=== PATIENT | male | born 1930 | race Caucasian/White ===

== ENCOUNTER 2017-06-05 14:22 | Emergency (ER) | payer MEDICARE ==
[2017-06-05] MEDS ORDERED: NS 0.9% 1000 ML* 1,000 ML IV ONE (15:35)
[2017-06-05 16:00] LABS: Hematocrit 46 % (42-52); Hemoglobin 15.5 g/dl (14.0-18.0); Mean Corpuscular HGB Conc 34 g/dl (31-36); Mean Corpuscular Hemoglobin 32 pg (27-31); Mean Corpuscular Volume 94 fL (80-94); Mean Platelet Volume 9 um3 (7.4-10.4); Red Blood Count 4.86 10^6/ul (4.0-5.4); Red Cell Distribution Width 14 % (10.5-15); White Blood Count 4.6 10^3/ul (3.5-10.8)
--- NOTE | 2017-06-05 16:10 | RAD ---
Indication: Pneumonia, CHF. Single frontal view of the chest performed at 1553 hours was reviewed. Comparison is made with previous exam dated February 06, 2017. No mediastinal shift is noted. Heart is of normal size and configuration. Lung syed appear clear. Bibasilar atelectasis is likely present. IMPRESSION: NO ACTIVE CARDIOPULMONARY DISEASE IS NOTED. MINIMAL DISCOID ATELECTASIS IN THE LUNG BASES BILATERALLY.
[2017-06-05 16:16] LABS: ALT 14 U/L (7-52); AST 20 U/L (13-39); Albumin 3.7 g/dL (3.2-5.2); Alkaline Phosphatase 59 U/L (34-104); Anion Gap 6 mmol/L (2-11); BUN/Creatinine Ratio 28.3 (8-20); Blood Urea Nitrogen 26 mg/dL (6-24); C Reactive Protein < 1.00 mg/L (< 5.00); CO2 Carbon Dioxide 26 mmol/L (22-32); Calcium 8.7 mg/dL (8.6-10.3); Chloride 105 mmol/L (101-111); Creatine Kinase 70 U/L (10-223); EGFR African American 100.6 (>60); EGFR Non-African American 78.2 (>60); Globulin 2.8 g/dL (2-4); Glucose 89 mg/dL (70-100); Magnesium 2.2 mg/dL (1.9-2.7); Potassium 3.8 mmol/L (3.5-5.0); Sodium 137 mmol/L (133-145); Total Protein 6.5 g/dL (6.4-8.9)
[2017-06-05 17:14] LABS: TSH (Thyroid Stimulating Horm) 0.95 mcIU/mL (0.34-5.60)
[2017-06-05 17:57] VITALS: BP 109/79
--- NOTE | 2017-06-05 18:22 | ED ---
Umang Gonsalez Angela, scribed for Yariel Chadwick MD on 06/05/17 at 1529 . Dizziness - HPI Summary HPI Summary: This pt is a 87 y/o male presenting to [facility] c/o dizziness today s/p internal monitor was placed yesterday. His long-term event monitor implant was recommended for arrhythmia assessment due to unexplained syncopal episode. Pt reports a room spinning feeling and head "fogginess." He was in the ED in January for vertigo and was given pills. He took these pills with no relief today. Pt denies passing out, headache, blurry vision, loss of vision, ringing in ears, chest pain, SOB. Pt's dizziness is not affected by sitting up. Pt has had stress test before. Pt denies PMHx of CVA, seizure disorder, diabetes. - History Of Current Complaint Chief Complaint: EDDizziness Stated Complaint: DIZZY/FOGGY FEELING Time Seen by Provider: 06/05/17 15:14 Hx Obtained From: Patient, Family/Clinical Biochemical Geneticist - Onset/Duration: Suddenly Timing: Hours Character: Head Spinning, Unable To Describe - head "fogginess" Associated Signs And Symptoms: Negative: Chest Pain, SOB, Visual Changes - Allergies/Home Medications Allergies/Adverse Reactions: Allergies Allergy/AdvReac Type Severity Reaction Status Date / Time Ciprofloxacin AdvReac C-DIFF Verified 05/07/17 08:46 Home Medications: Home Medications Aspirin EC Low Dose* [Ecotrin EC Low Dose 81 MG*] 81 mg PO DAILY 06/05/17 [ History Confirmed 06/05/17] Meclizine TAB* [Antivert 12.5 TAB*] 25 mg PO Q8HR PRN 06/05/17 [History Confirmed 06/05/17] PMH/Surg Hx/FS Hx/Imm Hx Endocrine/Hematology History: Denies: Hx Diabetes, Hx Thyroid Disease Cardiovascular History: Reports: Hx Hypertension - ON MEDICATION FOR, Other Cardiovascular Problems/Disorders - ARRYTHMIA- DR. CALABRESE Denies: Hx Angina, Hx Coronary Artery Disease, Hx Hypercholesterolemia, Hx Myocardial Infarction, Hx Pacemaker/ICD, Hx Valvular Heart Disease Respiratory History: Reports: Hx Seasonal Allergies, Hx Sleep Apnea - PRIOR TO WEIGHT LOSS PER PATIENT Denies: Hx Asthma, Hx Chronic Obstructive Pulmonary Disease (COPD) GI History: Denies: Hx Ulcer Musculoskeletal History: Reports: Hx Arthritis Sensory History: Reports: Hx Contacts or Glasses - READING GLASSES Denies: Hx Hearing Aid Opthamlomology History: Reports: Hx Contacts or Glasses - READING GLASSES - Surgical History Surgery Procedure, Year, and Place: HERNIA REPAIR Hx Anesthesia Reactions: No Infectious Disease History: No Infectious Disease History: Denies: Hx Hepatitis, Hx Human Immunodeficiency Virus (HIV), Traveled Outside the [place] in Last 30 Days - Family History Known Family History: Positive: Cardiac Disease, Diabetes Negative: Hypertension - Social History Alcohol Use: None Hx Substance Use: No Substance Use Type: Reports: None Hx Tobacco Use: No Smoking Status (MU): Never Smoked Tobacco Review of Systems Negative: Fever, Chills Eyes: Negative Negative: Blurred Vision ENT: Negative Negative: Palpitations, Chest Pain Negative: Shortness Of Breath Gastrointestinal: Negative Genitourinary: Negative Musculoskeletal: Negative Skin: Negative Neurological: Other - dizziness Positive: Headache - head "fogginess". Negative: Syncope Psychological: Normal All Other Systems Reviewed And Are Negative: Yes Physical Exam - Summary Physical Exam Summary: The patient is well-nourished in no acute distress. The skin is warm and dry and skin color reflects adequate perfusion. HEENT: The head is normocephalic and atraumatic. The pupils are equal and reactive. The conjunctivae are clear and without drainage. Nares are patent and without drainage. Mouth reveals moist mucous membranes and the throat is without erythema and exudate. The external ears are intact. The ear canals are patent and without drainage. The tympanic membranes are intact. Neck is supple with full range of motion and non-tender. There are no carotid bruits. Respiratory: Chest is non-tender. Lungs are clear to auscultation and breath sounds are symmetrical and equal. Cardiovascular: Heart is irregular. There is no murmur or rub auscultated. There is no peripheral edema and pulses are symmetrical and equal. Abdomen: The abdomen is soft and non-tender. There are normal bowel sounds heard in all four quadrants. Musculoskeletal: There is no back pain noted. Extremities are non-tender with full range of motion. There is good capillary refill. There is no peripheral edema or calf tenderness elicited. Neurological: Patient is alert and oriented to person, place and time. The patient has symmetrical motor strength in all four extremities. There is no motor weakness in upper extremities or lower extremities. Psychiatric: The patient has an appropriate affect and does not exhibit any anxiety or depression. Triage Information Reviewed: Yes Vital Signs On Initial Exam: Initial Vitals Temp Pulse Resp BP Pulse Ox 98.0 F 82 20 158/55 97 06/05/17 14:35 06/05/17 14:35 06/05/17 14:35 06/05/17 14:35 06/05/17 14:35 Vital Signs Reviewed: Yes - [place] Coma Scale Coma Scale Total: 15 Diagnostics - Vital Signs Vital Signs Temp Pulse Resp BP Pulse Ox 06/05/17 15:13 73 143/58 06/05/17 15:12 71 156/54 06/05/17 14:51 98 F 71 19 158/55 98 06/05/17 14:35 98.0 F 82 20 158/55 97 - Laboratory Lab Results: Lab Results 06/05/17 06/05/17 06/05/17 Range/Units 15:44 15:44 15:44 WBC 4.6 (3.5-10.8) 10^3/ul RBC 4.86 (4.0-5.4) 10^6/ul Hgb 15.5 (14.0-18.0) g/dl Hct 46 (42-52) % MCV 94 (80-94) fL MCH 32 H (27-31) pg MCHC 34 (31-36) g/dl RDW 14 (10.5-15) % Plt Count 151 (150-450) 10^3/ul MPV 9 (7.4-10.4) um3 Neut % (Auto) 49.0 (38-83) % Lymph % (Auto) 31.0 (25-47) % Hodgeman % (Auto) 18.0 H (1-9) % Eos % (Auto) 1.3 (0-6) % Baso % (Auto) 0.7 (0-2) % Absolute Neuts (auto) 2.2 (1.5-7.7) 10^3/ul Absolute Lymphs (auto) 1.4 (1.0-4.8) 10^3/ul Absolute Monos (auto) 0.8 (0-0.8) 10^3/ul Absolute Eos (auto) 0.1 (0-0.6) 10^3/ul Absolute Basos (auto) 0 (0-0.2) 10^3/ul Absolute Nucleated RBC 0.01 10^3/ul Nucleated RBC % 0.1 INR (Anticoag Therapy) (0.89-1.11) Sodium 137 (133-145) mmol/L Potassium 3.8 (3.5-5.0) mmol/L Chloride 105 (101-111) mmol/L Carbon Dioxide 26 (22-32) mmol/L Anion Gap 6 (2-11) mmol/L BUN 26 H (6-24) mg/dL Creatinine 0.92 (0.67-1.17) mg/dL Est GFR ( Amer) 100.6 (>60) Est GFR (Non-Af Amer) 78.2 (>60) BUN/Creatinine Ratio 28.3 H (8-20) Glucose 89 (70-100) mg/dL Lactic Acid (0.5-2.0) mmol/L Calcium 8.7 (8.6-10.3) mg/dL Magnesium 2.2 (1.9-2.7) mg/dL Total Bilirubin 0.60 (0.2-1.0) mg/dL AST 20 (13-39) U/L ALT 14 (7-52) U/L Alkaline Phosphatase 59 (34-104) U/L Total Creatine Kinase 70 (10-223) U/L Troponin I 0.00 (<0.04) ng/mL C-Reactive Protein < 1.00 (< 5.00) mg/L B-Natriuretic Peptide 62 ( - 100) pg/mL Total Protein 6.5 (6.4-8.9) g/dL Albumin 3.7 (3.2-5.2) g/dL Globulin 2.8 (2-4) g/dL Albumin/Globulin Ratio 1.3 (1-3) TSH 0.95 (0.34-5.60) mcIU/mL 06/05/17 06/05/17 Range/Units 15:44 15:44 WBC (3.5-10.8) 10^3/ul RBC (4.0-5.4) 10^6/ul Hgb (14.0-18.0) g/dl Hct (42-52) % MCV (80-94) fL MCH (27-31) pg MCHC (31-36) g/dl RDW (10.5-15) % Plt Count (150-450) 10^3/ul MPV (7.4-10.4) um3 Neut % (Auto) (38-83) % Lymph % (Auto) (25-47) % Hodgeman % (Auto) (1-9) % Eos % (Auto) (0-6) % Baso % (Auto) (0-2) % Absolute Neuts (auto) (1.5-7.7) 10^3/ul Absolute Lymphs (auto) (1.0-4.8) 10^3/ul Absolute Monos (auto) (0-0.8) 10^3/ul Absolute Eos (auto) (0-0.6) 10^3/ul Absolute Basos (auto) (0-0.2) 10^3/ul Absolute Nucleated RBC 10^3/ul Nucleated RBC % INR (Anticoag Therapy) 1.00 (0.89-1.11) Sodium (133-145) mmol/L Potassium (3.5-5.0) mmol/L Chloride (101-111) mmol/L Carbon Dioxide (22-32) mmol/L Anion Gap (2-11) mmol/L BUN (6-24) mg/dL Creatinine (0.67-1.17) mg/dL Est GFR ( Amer) (>60) Est GFR (Non-Af Amer) (>60) BUN/Creatinine Ratio (8-20) Glucose (70-100) mg/dL Lactic Acid 1.4 (0.5-2.0) mmol/L Calcium (8.6-10.3) mg/dL Magnesium (1.9-2.7) mg/dL Total Bilirubin (0.2-1.0) mg/dL AST (13-39) U/L ALT (7-52) U/L Alkaline Phosphatase (34-104) U/L Total Creatine Kinase (10-223) U/L Troponin I (<0.04) ng/mL C-Reactive Protein (< 5.00) mg/L B-Natriuretic Peptide ( - 100) pg/mL Total Protein (6.4-8.9) g/dL Albumin (3.2-5.2) g/dL Globulin (2-4) g/dL Albumin/Globulin Ratio (1-3) TSH (0.34-5.60) mcIU/mL Result Diagrams: 06/05/17 15:44 06/05/17 15:44 Lab Statement: Any lab studies that have been ordered have been reviewed, and results considered in the medical decision making process. - Radiology Chest XR Xray Interpretation: No Acute Changes - IMPRESSION: No active cardiopulmonary disease is noted. Minimal discoid atelectasis in the lung bases bilaterally. ED physician has reviewed this radiology report and agrees. Radiology Interpretation Completed By: Radiologist - EKG 1456 Cardiac Rate: Bradycardia EKG Rhythm: Sinus Rhythm ST Segment: Non-Specific EKG Interpretation: No ST elevation. Normal axis. Re-Evaluation - Re-Evaluation First Eval Re-Evaluation Time: 17:18 Comment: I reviewed the results with the pt and . Dizzy Course/Dx - Course Assessment/Plan: Pt is a 87 y/o male presenting to [facility] c/o dizziness today s/ p internal monitor was placed yesterday. Elevated BP noted. Labs, chest XR, and EKG were obtained. In the ED course, the pt was given IV fluids. EKG shows sinus bradycardia. Chest XR reveals no active cardiopulmonary disease noted. Minimal discoid atelectasis in the lung bases bilaterally. - Diagnoses Differential Diagnosis/HQI/PQRI: Benign Paroxysmal Positional Vertigo, Dysrhythmia, Hypovolemia, Other - syncope, Provider Diagnoses: Near syncope, Dehydration Discharge - Discharge Plan Condition: Stable Disposition: HOME Patient Education Materials: Near Syncope (ED) Referrals: Parag Jenkins MD [Primary Care Provider] - Edin Calabrese MD [Medical Doctor] - Additional Instructions: Your blood pressure was elevated during today's visit. Please follow up with your primary care provider, Dr. Jenkins, in the next couple of days. Also, follow up with Dr. Calabrese in the next 2 days. The documentation as recorded by the Umang العراقي Angela accurately reflects the service I personally performed and the decisions made by me, Yariel Chadwick MD.
== END 2017-06-05 17:58 | disposition home or self-care (01) ==
LOC: ED 14:22
DX: R42 Dizziness and giddiness (principal); R51 Headache; R55 Syncope and collapse; E86.0 Dehydration
CPT/HCPCS: 36415; 71010; 80053; 82550; 83605; 83735; 83880; 84443; 84484; 85025; 85610; 86140; 93005; 99284

== ENCOUNTER 2017-07-04 06:49 | Observation (INO) | payer MEDICARE ==
[2017-07-04 07:55] LABS: Hematocrit 46 % (42-52); Hemoglobin 15.6 g/dl (14.0-18.0); Mean Corpuscular HGB Conc 34 g/dl (31-36); Mean Corpuscular Hemoglobin 32 pg (27-31); Mean Corpuscular Volume 94 fL (80-94); Mean Platelet Volume 9 um3 (7.4-10.4); Red Blood Count 4.94 10^6/ul (4.0-5.4); Red Cell Distribution Width 13 % (10.5-15); White Blood Count 4.2 10^3/ul (3.5-10.8)
[2017-07-04] MEDS ORDERED: Midazolam* 1 MG/ML 5 ML VIAL (5 MG) ONE (07:59)
[2017-07-04] MEDS ORDERED: fentaNYL* 50 MCG/ML 2 ML VIAL (100 MCG VIAL) ONE (07:59)
[2017-07-04] MEDS ORDERED: Lidocaine 1% INJ* 10 MG/ML 30 ML SDV ONE (08:00)
[2017-07-04] MEDS ORDERED: ceFAZolin 2 GM PREMIX (*) 50 ML IVPB ONE (08:00)
[2017-07-04] MEDS ORDERED: Naloxone* 0.4 MG/ML 1 ML VIAL ONE (08:00)
[2017-07-04] MEDS ORDERED: Flumazenil* 0.1 MG/ML 5 ML MDV ONE (08:00)
[2017-07-04 08:07] LABS: BUN/Creatinine Ratio 25.6 (8-20); Calcium 8.7 mg/dL (8.6-10.3); EGFR African American 108.7 (>60); EGFR Non-African American 84.5 (>60); Potassium 4.2 mmol/L (3.5-5.0)
[2017-07-04] MEDS ORDERED: Iohexol 300 (CONTRAST) 10 ML SDV ONE (08:36)
[2017-07-04] MEDS ORDERED: Nitroglycerin TAB 0.4 MG* 0.4 MG TAB SL PRN (09:46)
[2017-07-04] MEDS ORDERED: Meclizine TAB* 12.5 MG PO PRN (09:46)
[2017-07-04] MEDS ORDERED: Acetaminophen TAB* 325 MG PO PRN (10:02)
[2017-07-04] MEDS: Potassium Chlor TAB* 20 MEQ TAB.ER PO SCH (10:52)
[2017-07-04] MEDS: Metoprolol Succinate XL TAB* 25 MG PO SCH (10:52)
--- NOTE | 2017-07-04 12:51 | RAD ---
HISTORY: Status post device implant COMPARISONS: June 05, 2017 VIEWS: 1: frontal portable view of the chest at 12:30 PM FINDINGS: LINES AND TUBES: A left-sided pacemaker is noted. CARDIOMEDIASTINAL SILHOUETTE: The cardiomediastinal silhouette is normal for portable technique. PLEURA: The costophrenic angles are sharp. No pleural abnormalities are noted. There is no pneumothorax. LUNG PARENCHYMA: The lungs are clear. ABDOMEN: The upper abdomen is clear. There is no subphrenic gas. BONES AND SOFT TISSUES: No bone or soft tissue abnormalities are noted. IMPRESSION: NO ACTIVE CARDIOPULMONARY DISEASE.
[2017-07-04] MEDS: ceFAZolin 1 GM VIAL(*) 1 GM in NS 0.9% 50 ML* 50 ML IVPB SCH (17:51)
[2017-07-05] MEDS: ceFAZolin 1 GM VIAL(*) 1 GM in NS 0.9% 50 ML* 50 ML IVPB SCH ×2 (00:39→08:56)
[2017-07-05] MEDS: Metoprolol Succinate XL TAB* 25 MG PO SCH (08:54)
[2017-07-05] MEDS: Potassium Chlor TAB* 20 MEQ TAB.ER PO SCH (08:55)
--- NOTE | 2017-07-05 09:58 | RAD ---
HISTORY: Status post device implant COMPARISONS: July 04, 2017 VIEWS: 4: Frontal dual-energy and lateral views of the chest. Evaluation is somewhat limited by arm positioning. FINDINGS: CARDIOMEDIASTINAL SILHOUETTE: The cardiomediastinal silhouette is normal. AUBRIE: The aubrie are normal. PLEURA: The costophrenic angles are sharp. No pleural abnormalities are noted. There is no appreciable pneumothorax. LUNG PARENCHYMA: The lungs are clear. ABDOMEN: The upper abdomen is clear. There is no subphrenic gas. BONES AND SOFT TISSUES: No bone or soft tissue abnormalities are noted. OTHER: A left-sided pacemaker is noted. IMPRESSION: NO ACTIVE CARDIOPULMONARY DISEASE.
[2017-07-05 11:41] VITALS: BP 124/51
--- NOTE | 2017-07-06 14:41 | OP ---
CC: Dr. Edin Calabrese; Dr. Parag Jenkins * DATE OF OPERATION: 07/04/17 - ROOM #431 DATE OF : 34 SURGEON: Eloise Elizabeth MD PRE-OP DIAGNOSES: Sick sinus syndrome, syncope, and tachybrady. POST-OP DIAGNOSES: Sick sinus syndrome, syncope and tachybrady. OPERATIVE PROCEDURE: Dual-chamber pacemaker implantation. INDICATIONS: The indications, risks, and benefits of the procedure had been explained to the patient and his in the office and again reviewed on the day of implantation. All questions were answered, and they were amenable to proceeding. DESCRIPTION OF PROCEDURE: The patient's left subclavian fossa was prepped and draped in the usual sterile fashion and time-out procedure was called. The patient received a total of 4 mg of Versed and 25 mcg of fentanyl throughout the procedure as well as 1% lidocaine for local anesthesia. 10 cc of radiopaque dye was injected in the left upper extremity outlining the left axillary vein. Following this, lidocaine was infused locally and using 10 blade knife, a 2.5-cm incision was made in the left subclavian fossa, and using Bovie and blunt dissection, it was extended to the level of pectoralis muscle. Additional lidocaine was infused medial and laterally and using blunt dissection , a small pocket was fashioned. Using a modified Seldinger technique and fluoroscopic guidance, the left subclavian vein was cannulated. A guidewire inserted. The procedure was repeated with a second guidewire. Using the introducer technique, the ventricular lead was guided into the right ventricular apex and actively fixed in place. Pacing and sensing thresholds were adequate and improved to excellent within several minutes. Using the second guidewire in an introducer technique, the right atrial lead was guided into the right atrial appendage. Good "wind shield washer" motion was noted, it was actively fixed in place. Pacing and sensing thresholds were checked and found to be good. The wounds were then sutured through the pocket using 0 silk suture. The leads were attached to the generator and the pocket was copiously irrigated with normal saline. Surgicel was placed in the more superior portion of the port as the passer sheath had eroded off the pectoralis muscle. The generator was then placed in the pocket. The incision was closed using two layers of resorbable suture, 2-0 followed by 4-0 followed by violet and external dressing. FINDINGS: The system is a [employer] MRI compatible system. The device is a [employer] A2DR01, serial #[id number]. The atrial lead is a Medtronic model 5076-52, serial #[id number] with P-wave sensed at 4.3 millivolts , atrial lead impedance of 584 ohms, and an atrial pacing impendence threshold of 0.7 volts at 0.5 milliseconds. The ventricular lead is a Medtronic model 5076-58, serial #[id number] with R- wave sensed at 11.1 millivolts, ventricular lead impedance of 1179 ohms, and ventricular pacing threshold of 1.1 volts at 0.5 milliseconds. The patient was hemodynamically stable throughout the procedure and during the recovery. There were no complications. [id number]/[facility] #: [id number] MANDEEP
--- NOTE | 2017-07-06 15:46 | DS ---
DISCHARGE SUMMARY: DATE OF ADMISSION: 07/04/17 DATE OF DISCHARGE: 07/05/17 HISTORY: The patient had a dual chamber pacemaker implantation on 07/04/17 for history of syncope and tachybrady syndrome. He had a Medtronic MRI compatible system implanted without complication and postoperatively, his metoprolol was doubled from 25 mg daily to 50 mg daily for PACs and history of SVT. PAST MEDICAL HISTORY: The patient has a past medical history of PACs, syncope, hypertension, dyslipidemia, benign prostatic hypertrophy, in 2013, cataract. PAST SURGICAL HISTORY: Includes tonsillectomy, hernia repair. HOSPITAL COURSE: This gentleman underwent a dual chamber pacemaker implantation as above with a Medtronic MRI compatible system with no complications. Metoprolol was doubled and his blood pressure which was mild to moderately elevated improved. Chest x-ray on the day of the procedure and today on the day of discharge showed good lead placement and no evidence of hemothorax. Pacemaker interrogation today showed P wave sensed at 1.8 mV, atrial lead impedance 456 ohms, and an atrial pacing threshold of 0.5 volts at 0.4 msec. RV lead showed R wave sensed at 5.8 mV and ventricular lead impedance of 722 ohms and RV pacing threshold of 0.25 volts at 0.4 msec. Overnight, the patient was atrially pacing 82% of the time and ventricularly pacing under 1% of the time. He has SVT, possible AFib with the longest episode lasting 4 minutes. The device was programmed to MVP mode (AAI/DDD) at discharge with a low rate of 60 beats per minute. LABORATORY DATA ON ADMISSION: Showed sodium 139, potassium 4.2, glucose 101, BUN 22, creatinine 0.86. White count 4.2, hematocrit 36, mean cell volume 94. PHYSICAL EXAMINATION AT THE TIME OF DISCHARGE: Blood pressure 148/58, pulse was 60 and paced. General Appearance: Older gentleman who is lying in bed, in no acute distress. Psychologically, calm, cooperative, pleasant. Neurologically, awake, alert, and oriented to person, place, and time. Cranial nerves II through XII intact, grossly normal sensory and motor function in the upper and lower extremities. Normal gait. Skin: Warm and dry. The incision in the left subclavian fossa showed no evidence of infection. No ecchymosis. No hematoma. HEENT: Mucous membranes moist. Neck: Without increased JVP. Lungs remain clear with good effort. No wheezes, rales, or rhonchi. Coronary : S1, S2 regular without murmurs. Abdomen: Soft, nontender. Lower Extremities: Free of edema. Studies as above. In summary, Mr. 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 Blood pressures improved on the higher dose of metoprolol. DISCHARGE MEDICATIONS: Are as follows: 1. Keflex 250 mg t.i.d. for 4 days. 2. Metoprolol 50 mg a day. 3. He is to hold his Eliquis until Saturday and then resume at 5 mg b.i.d. 4. Potassium chloride 20 mEq a day. 5. Probiotic 1 tab daily. 6. Vitamin D3 1000 units daily. 7. Nitroglycerin p.r.n. 8. Meclizine p.r.n. ALLERGIES: Include AUGMENTIN, NORVASC, MINOCYCLINE, and CIPRO. Questions were answered about wound care and pacemaker care in addition to written instructions that will be provided to the patient. [id number]/[facility] #: [id number] MTDD
== END 2017-07-05 11:33 | disposition home or self-care (01) ==
LOC: CHICATH 06:49 → MEDTELE 09:49 → UNDOADMOB 10:00
PROVIDERS: ADMIT Specialist; ATTEND Specialist
DX: I49.5 Sick sinus syndrome (principal); R55 Syncope and collapse; I10 Essential (primary) hypertension; N40.0 Benign prostatic hyperplasia without lower urinary tract symptoms; Z79.01 Long term (current) use of anticoagulants; Z79.899 Other long term (current) drug therapy; E78.5 Hyperlipidemia, unspecified; Z88.1 Allergy status to other antibiotic agents; Z88.8 Allergy status to other drugs, medicaments and biological substances
CPT/HCPCS: 33208; 36415; 71010; 71020; 80048; 85025; 85610; 93005; 99156; 99157; A9270-GY; C1785; C1898; G0378; J0690; J2001; J2250; J2310; J3010; Q9967

== ENCOUNTER 2021-08-05 11:38 | Inpatient (IN) ==
[2021-08-05 12:06] LABS: ABS Basophils 0.1 10^3/ul (0-0.2); ABS Eosinophils 0.1 10^3/ul (0-0.6); ABS Lymphocytes 1.7 10^3/ul (1.0-4.8); ABS Monocytes 1.2 10^3/ul (0-0.8); ABS Neutrophils 4.9 10^3/ul (1.5-7.7); Eosinophil % 1.7 %; Hematocrit 45 % (42-52); Hemoglobin 15.1 g/dL (14.0-18.0); Lymphocyte % 21.2 %; Mean Corpuscular HGB Conc 34 g/dL (31-36); Mean Corpuscular Hemoglobin 31 pg (27-31); Mean Corpuscular Volume 93 fL (80-94); Mean Platelet Volume 9.6 fL (7.4-10.4); Platelet Count 208 10^3/uL (150-450); Red Blood Count 4.84 10^6 /uL (4.18-5.48); Red Cell Distribution Width 15 % (10-15); White Blood Count 7.9 10^3/uL (3.5-10.8)
[2021-08-05 12:16] LABS: INR 1.2 (0.86-1.15)
[2021-08-05 12:35] LABS: ALT 14 U/L (7-52); Albumin 3.8 g/dL (3.2-5.2); Albumin/Globulin Ratio 0.9 (1-3); Alkaline Phosphatase 88 U/L (35-149); Blood Urea Nitrogen 30 mg/dL (6-24); CO2 Carbon Dioxide 22 mmol/L (22-32); Calcium 9.3 mg/dL (8.6-10.3); Chloride 104 mmol/L (101-111); Globulin 4.2 g/dL (2-4); Glucose 104 mg/dL (70-100); Sodium 135 mmol/L (135-145)
[2021-08-05 12:37] LABS: Anion Gap 9 mmol/L (2-11); Troponin I 0.04 ng/mL (<0.03)
[2021-08-05] MEDS ORDERED: Nitro 2% OINT (Nitroglycerin) 1 INCH/PAK TOPICAL ONE (12:38)
[2021-08-05] MEDS ORDERED: NS 0.9% 1000 ml BAG 1,000 ML IV ONE (12:38)
[2021-08-05] MEDS ORDERED: Iohexol 350 (CONTRAST) 500 ML MDV IV ONE (12:45)
[2021-08-05] MEDS ORDERED: Ondansetron 4 mg VIAL 2 MG/ML 2 ml VIAL IV ONE (13:07)
[2021-08-05] MEDS ORDERED: Morphine 2 MG/ML SYRINGE IV ONE (13:08)
[2021-08-05 13:15] LABS: Magnesium 2.1 mg/dL (1.9-2.7)
[2021-08-05] MEDS ORDERED: Heparin DRIP 25,000 UNITS BAG 25,000 UNITS/500 ML BAG IV SCH (13:45)
[2021-08-05 13:57] LABS: Activated Partial Thrombo Time 28.8 seconds (26.0-38.0)
[2021-08-05] MEDS ORDERED: Heparin 5000 UNITS/ML 1 mL VIAL IV SCH (14:00)
[2021-08-05 15:27] LABS: Potassium Redraw 4.3 mmol/L (3.5-5.0)
[2021-08-05 15:46] LABS: AST Redraw 23 U/L (13-39)
[2021-08-05 15:47] LABS: Troponin I 0.34 ng/mL (<0.03)
[2021-08-05] MEDS ORDERED: Ondansetron 4 mg VIAL 2 MG/ML 2 ml VIAL IV PRN (17:25)
[2021-08-05 18:53] LABS: Rapid COVID-19 Molecular Undetected (Undetected)
[2021-08-05 19:12] LABS: Troponin I 8.53 ng/mL (<0.03)
[2021-08-05] MEDS: NS 0.9% 1000 ml BAG 1,000 ML IV SCH (22:31)
[2021-08-05 22:55] LABS: Troponin I 13.88 ng/mL (<0.03)
[2021-08-06 03:15] LABS: Troponin I 13.38 ng/mL (<0.03)
[2021-08-06] MEDS: NS 0.9% 1000 ml BAG 1,000 ML IV SCH (04:18)
[2021-08-06 07:11] LABS: ABS Basophils 0.1 10^3/ul (0-0.2); ABS Eosinophils 0.1 10^3/ul (0-0.6); ABS Lymphocytes 0.7 10^3/ul (1.0-4.8); ABS Monocytes 0.7 10^3/ul (0-0.8); ABS Neutrophils 3.9 10^3/ul (1.5-7.7); Eosinophil % 2.5 %; Hematocrit 42 % (42-52); Hemoglobin 13.7 g/dL (14.0-18.0); Lymphocyte % 12.3 %; Mean Corpuscular HGB Conc 33 g/dL (31-36); Mean Corpuscular Hemoglobin 31 pg (27-31); Mean Corpuscular Volume 95 fL (80-94); Nucleated Red Blood Cells % 0.1; Platelet Count 178 10^3/uL (150-450); Red Blood Count 4.37 10^6 /uL (4.18-5.48); Red Cell Distribution Width 15 % (10-15); White Blood Count 5.5 10^3/uL (3.5-10.8)
[2021-08-06 07:14] LABS: Anion Gap 6 mmol/L (2-11); Blood Urea Nitrogen 18 mg/dL (6-24); CO2 Carbon Dioxide 25 mmol/L (22-32); Calcium 8.5 mg/dL (8.6-10.3); Chloride 106 mmol/L (101-111); Cholesterol 146 mg/dL; Glucose 101 mg/dL (70-100); HDL Cholesterol 45.3 mg/dL; LDL Cholesterol 81 mg/dL; Potassium 4.2 mmol/L (3.5-5.0); Sodium 137 mmol/L (135-145); Triglycerides 97 mg/dL
[2021-08-06] MEDS: Aspirin EC 81 mg TAB.EC (enteric coated) PO SCH (10:00)
[2021-08-07 06:35] LABS: ABS Eosinophils 0.1 10^3/ul (0-0.6); ABS Lymphocytes 0.6 10^3/ul (1.0-4.8); ABS Monocytes 0.8 10^3/ul (0-0.8); ABS Neutrophils 4.1 10^3/ul (1.5-7.7); Eosinophil % 2.3 %; Hematocrit 39 % (42-52); Hemoglobin 13.2 g/dL (14.0-18.0); Lymphocyte % 10.3 %; Mean Corpuscular HGB Conc 34 g/dL (31-36); Mean Corpuscular Hemoglobin 31 pg (27-31); Mean Corpuscular Volume 94 fL (80-94); Mean Platelet Volume 9.3 fL (7.4-10.4); Platelet Count 179 10^3/uL (150-450); Red Blood Count 4.21 10^6 /uL (4.18-5.48); Red Cell Distribution Width 15 % (10-15); White Blood Count 5.6 10^3/uL (3.5-10.8)
[2021-08-07 06:52] LABS: Calcium 8.6 mg/dL (8.6-10.3); Potassium 3.8 mmol/L (3.5-5.0)
[2021-08-07] MEDS: Aspirin EC 81 mg TAB.EC (enteric coated) PO SCH (07:54)
[2021-08-07] MEDS ORDERED: Enoxaparin 40 MG/0.4 ML SYR SUBCUT SCH (08:00)
[2021-08-07 22:46] LABS: Calcium 8.8 mg/dL (8.6-10.3); Potassium 4.1 mmol/L (3.5-5.0)
[2021-08-08 05:57] LABS: ABS Eosinophils 0.1 10^3/ul (0-0.6); ABS Lymphocytes 0.7 10^3/ul (1.0-4.8); ABS Monocytes 0.8 10^3/ul (0-0.8); ABS Neutrophils 4.2 10^3/ul (1.5-7.7); Eosinophil % 2.5 %; Hematocrit 40 % (42-52); Hemoglobin 13.5 g/dL (14.0-18.0); Lymphocyte % 11.3 %; Mean Corpuscular HGB Conc 34 g/dL (31-36); Mean Corpuscular Hemoglobin 31 pg (27-31); Mean Corpuscular Volume 93 fL (80-94); Mean Platelet Volume 9.4 fL (7.4-10.4); Platelet Count 189 10^3/uL (150-450); Red Cell Distribution Width 15 % (10-15); White Blood Count 5.9 10^3/uL (3.5-10.8)
[2021-08-08 06:15] LABS: Potassium 3.8 mmol/L (3.5-5.0)
[2021-08-08 07:54] LABS: INR 1.27 (0.86-1.15)
[2021-08-08] MEDS: Aspirin EC 81 mg TAB.EC (enteric coated) PO SCH (10:44)
[2021-08-08] MEDS ORDERED: fentaNYL 100 mcg/2 ml 50 MCG/ML VIAL ONE (13:32)
[2021-08-08] MEDS ORDERED: Heparin 2 UNITS/ML 1000 mls 1,000 ML IV ONE (13:32)
[2021-08-08 15:18] VITALS: BP 121/72
== END 2021-08-08 18:00 | disposition home health service (06) | DRG 280 ==
LOC: ED 11:38 → EDHOLD 17:33 → SUATTDRO 17:33 → MEDTELE 19:05
PROVIDERS: ADMIT Internal Medicine; ATTEND Internal Medicine

== ENCOUNTER 2021-12-19 15:06 | Inpatient (IN) ==
[2021-12-19 17:56] LABS: Calcium 7.9 mg/dL (8.6-10.3); Potassium 4.2 mmol/L (3.5-5.0)
[2021-12-19 18:02] LABS: eGFR CKD-EPI 81.6 (>60)
[2021-12-19] MEDS ORDERED: Senna TAB 8.6 mg TAB PO PRN (18:13)
[2021-12-19] MEDS: NS 0.9% 1000 ml BAG 1,000 ML IV SCH (20:30)
[2021-12-20 03:14] LABS: Urine Appearance Clear; Urine Bilirubin Negative (Negative); Urine Blood 1+ (Negative); Urine Color Yellow; Urine Glucose Negative (Negative); Urine Ketones Negative (Negative); Urine Nitrite Negative (Negative); Urine Protein Negative (Negative); Urine Specific Gravity 1.013 (1.002-1.030); Urine Urobilinogen Negative (Negative)
[2021-12-20 03:19] LABS: Urine Bacteria Absent (Absent); Urine Red Blood Cell Trace(0-2/hpf) (Absent); Urine White Blood Cell Trace(0-5/hpf) (Absent)
[2021-12-20 04:57] LABS: Urine Osmo 501 mOsm/kg (150-1150)
[2021-12-20 05:57] LABS: Hematocrit 36 % (42-52); Mean Corpuscular HGB Conc 34 g/dL (31-36); Mean Corpuscular Hemoglobin 32 pg (27-31); Mean Corpuscular Volume 95 fL (80-94); Mean Platelet Volume 8.1 fL (7.4-10.4); Platelet Count 120 10^3/uL (150-450); Red Blood Count 3.75 10^6 /uL (4.18-5.48); Red Cell Distribution Width 15 % (10-15); White Blood Count 25.1 10^3/uL (3.5-10.8)
[2021-12-20 06:25] LABS: Osmolality Serum 268 mOsm/kg (275-295)
[2021-12-20 06:30] LABS: Calcium 7.7 mg/dL (8.6-10.3); Potassium 4.4 mmol/L (3.5-5.0)
[2021-12-20 06:35] LABS: eGFR CKD-EPI 78.5 (>60)
[2021-12-20] MEDS: NS 0.9% 1000 ml BAG 1,000 ML IV SCH (06:39)
[2021-12-20 06:50] LABS: TSH Ultra Thyroid Stim Horm 4.08 mcIU/mL (0.34-5.60)
[2021-12-20 07:44] LABS: RBC Morphology Normal (Normal)
[2021-12-20 07:45] LABS: ABS Eosinophils 0.1 10^3/ul (0-0.6); ABS Lymphocytes 0.2 10^3/ul (1.0-4.8); ABS Monocytes 2.3 10^3/ul (0-0.8); ABS Neutrophils 22.5 10^3/ul (1.5-7.7); Eosinophil % 0.4 %; Lymphocyte % 0.8 %
[2021-12-20] MEDS ORDERED: Iohexol 300 (CONTRAST) 10 ML SDV IV ONE ×2 (10:04→13:36)
[2021-12-21 05:44] LABS: Hematocrit 33 % (42-52); Mean Corpuscular HGB Conc 34 g/dL (31-36); Mean Corpuscular Hemoglobin 32 pg (27-31); Mean Corpuscular Volume 95 fL (80-94); Red Blood Count 3.43 10^6 /uL (4.18-5.48); Red Cell Distribution Width 15 % (10-15); White Blood Count 21.8 10^3/uL (3.5-10.8)
[2021-12-21 06:10] LABS: Calcium 7.6 mg/dL (8.6-10.3); Potassium 4.1 mmol/L (3.5-5.0); eGFR CKD-EPI 64.2 (>60)
[2021-12-21 07:36] LABS: ABS Basophils 0.1 10^3/ul (0-0.2); ABS Eosinophils 0.1 10^3/ul (0-0.6); ABS Lymphocytes 0.2 10^3/ul (1.0-4.8); ABS Monocytes 1.5 10^3/ul (0-0.8); ABS Neutrophils 19.9 10^3/ul (1.5-7.7); Eosinophil % 0.5 %; Lymphocyte % 0.9 %; RBC Morphology Normal (Normal)
[2021-12-21 07:37] LABS: Mean Platelet Volume 8.5 fL (7.4-10.4); Platelet Count 99 10^3/uL (150-450)
[2021-12-21] MEDS ORDERED: Perflutren Lipid Microsphere 3 ML VIAL ONE (08:31)
[2021-12-21 12:26] VITALS: BP 115/50
== END 2021-12-21 13:45 | disposition home or self-care (01) | DRG 644 ==
LOC: CHOA 15:06 → MEDTELE 18:11
PROVIDERS: ADMIT Internal Medicine Hematology & Oncology; ATTEND Internal Medicine Hematology & Oncology

== ENCOUNTER 2021-12-28 13:05 | Inpatient (IN) ==
[2021-12-28 13:41] LABS: Albumin 2.8 g/dL (3.2-5.2); Calcium 7.9 mg/dL (8.6-10.3); Potassium 4.5 mmol/L (3.5-5.0); Total Bilirubin 0.4 mg/dL (0.2-1.0)
[2021-12-28 13:47] LABS: Albumin/Globulin Ratio 1.2 (1-3); Globulin 2.4 g/dL (2-4); Total Protein 5.2 g/dL (6.4-8.9); eGFR CKD-EPI 46.4 (>60)
[2021-12-28 14:27] LABS: TSH Ultra Thyroid Stim Horm 8.86 mcIU/mL (0.34-5.60)
[2021-12-28 14:29] LABS: Free T4 1.25 ng/dL (0.61-1.12)
[2021-12-28] MEDS ORDERED: Furosemide 20 mg/2 ml IV VIAL IV ONE (14:33)
[2021-12-28] MEDS ORDERED: Bumetanide IV 0.25 MG/ML 4 ml VIAL (1 mg) SLOW PUSH SCH (15:00)
[2021-12-28] MEDS ORDERED: Senna TAB 8.6 mg TAB PO PRN (15:09)
[2021-12-28] MEDS: Morphine 2 MG/ML SYRINGE IV PRN (16:50)
[2021-12-28] MEDS: Enoxaparin 40 MG/0.4 ML SYR SUBCUT SCH (18:05)
[2021-12-28 18:42] LABS: Urine Appearance Clear; Urine Bilirubin Negative (Negative); Urine Blood Negative (Negative); Urine Color Yellow; Urine Glucose Negative (Negative); Urine Ketones Negative (Negative); Urine Nitrite Negative (Negative); Urine Protein Negative (Negative); Urine Specific Gravity 1.011 (1.002-1.030); Urine Urobilinogen Negative (Negative)
[2021-12-29 07:48] LABS: Hematocrit 28 % (42-52); Hemoglobin 9.3 g/dL (14.0-18.0); Mean Corpuscular HGB Conc 33 g/dL (31-36); Mean Corpuscular Hemoglobin 32 pg (27-31); Mean Corpuscular Volume 95 fL (80-94); Platelet Count 77 10^3/uL (150-450); Red Blood Count 2.94 10^6 /uL (4.18-5.48); Red Cell Distribution Width 15 % (10-15); White Blood Count 12.3 10^3/uL (3.5-10.8)
[2021-12-29 08:36] LABS: ABS Eosinophils 0.2 10^3/ul (0-0.6); ABS Lymphocytes 0.2 10^3/ul (1.0-4.8); ABS Monocytes 1.1 10^3/ul (0-0.8); ABS Neutrophils 10.8 10^3/ul (1.5-7.7); Eosinophil % 1.6 %; Lymphocyte % 1.8 %
[2021-12-29 08:41] LABS: RBC Morphology Normal (Normal)
[2021-12-29] MEDS: Morphine 2 MG/ML SYRINGE IV PRN ×2 (08:44→17:52)
[2021-12-29 10:05] LABS: Albumin 1.8 g/dL (3.2-5.2); Potassium 2.8 mmol/L (3.5-5.0); Total Bilirubin 0.4 mg/dL (0.2-1.0)
[2021-12-29 10:11] LABS: Albumin/Globulin Ratio 1.1 (1-3); Globulin 1.6 g/dL (2-4); Total Protein 3.4 g/dL (6.4-8.9); eGFR CKD-EPI 66.3 (>60)
[2021-12-29 10:15] LABS: Calcium 5.3 mg/dL (8.6-10.3)
[2021-12-29] MEDS ORDERED: Potassium Chlor 20 meq TAB.ER PO ONE (11:16)
[2021-12-29 11:43] LABS: Anion Gap 8 mmol/L (2-11); Blood Urea Nitrogen 33 mg/dL (6-24); CO2 Carbon Dioxide 28 mmol/L (22-32); Calcium 7.7 mg/dL (8.6-10.3); Chloride 95 mmol/L (101-111); Glucose 77 mg/dL (70-100); Potassium 3.9 mmol/L (3.5-5.0); Sodium 131 mmol/L (135-145); eGFR CKD-EPI 43.9 (>60)
[2021-12-29] MEDS ORDERED: Furosemide 40 mg/4 ml IV VIAL IV SLOW PU SCH (12:00)
[2021-12-29 12:32] LABS: Total Iron Binding Capacity 192 mcg/dL (250-450); Transferrin 137 mg/dL (203-362)
[2021-12-29 12:34] LABS: % Iron Saturation 10 % (15-55); Iron < 20 ug/dL (50-212); Unsaturated Iron Binding 172 ug/dL
[2021-12-29 12:51] LABS: Ferritin 528.8 ng/mL (24-336)
[2021-12-29] MEDS: Enoxaparin 40 MG/0.4 ML SYR SUBCUT SCH (17:52)
[2021-12-30] MEDS: Morphine 2 MG/ML SYRINGE IV PRN ×3 (04:31→17:26)
[2021-12-30 07:36] LABS: Hematocrit 33 % (42-52); Hemoglobin 10.9 g/dL (14.0-18.0); Mean Corpuscular HGB Conc 33 g/dL (31-36); Mean Corpuscular Hemoglobin 32 pg (27-31); Mean Corpuscular Volume 96 fL (80-94); Red Blood Count 3.47 10^6 /uL (4.18-5.48); Red Cell Distribution Width 15 % (10-15); White Blood Count 15.3 10^3/uL (3.5-10.8)
[2021-12-30 07:47] LABS: Calcium 7.9 mg/dL (8.6-10.3); Potassium 4.7 mmol/L (3.5-5.0); eGFR CKD-EPI 40.3 (>60)
[2021-12-30 08:13] LABS: Platelet Count Platelets clumped. 10^3/uL (150-450)
[2021-12-30 08:15] LABS: RBC Morphology Normal (Normal)
[2021-12-30 08:17] LABS: ABS Eosinophils 0.4 10^3/ul (0-0.6); ABS Lymphocytes 0.2 10^3/ul (1.0-4.8); ABS Monocytes 0.9 10^3/ul (0-0.8); ABS Neutrophils 13.8 10^3/ul (1.5-7.7); Eosinophil % 2.4 %; Lymphocyte % 1.6 %
[2021-12-30] MEDS ORDERED: Prochlorperazine 5 mg/ml 2 ml VIAL (10 mg) IV PRN (11:09)
[2021-12-30 13:05] LABS: Calcium 7.9 mg/dL (8.6-10.3); Potassium 4.7 mmol/L (3.5-5.0)
[2021-12-30] MEDS: Enoxaparin 40 MG/0.4 ML SYR SUBCUT SCH (17:26)
[2021-12-31] MEDS: Morphine 2 MG/ML SYRINGE IV PRN ×3 (08:23→20:16)
[2021-12-31] MEDS: Polyethylene Glycol 3350 17 GM PACKET PO PRN (08:31)
[2021-12-31] MEDS ORDERED: fentaNYL PATCH 12 MCG/HR 1 PATCH TRANSDERM SCH (11:00)
[2021-12-31] MEDS: Enoxaparin 40 MG/0.4 ML SYR SUBCUT SCH (16:31)
[2021-12-31] MEDS: fentaNYL Patch Check Q Shift NOTE FOLLOW UP SCH (19:09)
[2021-12-31] MEDS: Senna TAB 8.6 mg TAB PO SCH (20:15)
[2022-01-01] MEDS: Morphine 2 MG/ML SYRINGE IV PRN ×5 (00:09→23:45)
[2022-01-01] MEDS: fentaNYL Patch Check Q Shift NOTE FOLLOW UP SCH ×2 (07:01→18:54)
[2022-01-01] MEDS: Senna TAB 8.6 mg TAB PO SCH ×2 (10:23→20:16)
[2022-01-01] MEDS: Enoxaparin 40 MG/0.4 ML SYR SUBCUT SCH (17:06)
[2022-01-02 05:10] LABS: Hematocrit 31 % (42-52); Hemoglobin 10.2 g/dL (14.0-18.0); Mean Corpuscular HGB Conc 33 g/dL (31-36); Mean Corpuscular Hemoglobin 31 pg (27-31); Mean Corpuscular Volume 93 fL (80-94); Mean Platelet Volume 8.4 fL (7.4-10.4); Platelet Count 172 10^3/uL (150-450); Red Blood Count 3.32 10^6 /uL (4.18-5.48); Red Cell Distribution Width 16 % (10-15); White Blood Count 15.1 10^3/uL (3.5-10.8)
[2022-01-02 05:35] LABS: Anisocytosis 1+
[2022-01-02 05:36] LABS: ABS Basophils 0.1 10^3/ul (0-0.2); ABS Eosinophils 0.5 10^3/ul (0-0.6); ABS Lymphocytes 0.3 10^3/ul (1.0-4.8); ABS Monocytes 1.1 10^3/ul (0-0.8); ABS Neutrophils 13.2 10^3/ul (1.5-7.7); Eosinophil % 3.1 %; Lymphocyte % 1.9 %
[2022-01-02] MEDS: fentaNYL Patch Check Q Shift NOTE FOLLOW UP SCH ×3 (07:15→19:12)
[2022-01-02] MEDS: Senna TAB 8.6 mg TAB PO SCH ×2 (09:28→21:26)
[2022-01-02] MEDS: Polyethylene Glycol 3350 17 GM PACKET PO PRN (09:29)
[2022-01-02] MEDS: Morphine 2 MG/ML SYRINGE IV PRN ×5 (09:31→21:16)
[2022-01-02] MEDS ORDERED: fentaNYL PATCH 25 MCG/HR 1 PATCH TRANSDERM SCH (09:52)
[2022-01-02 15:28] LABS: Calcium 7.9 mg/dL (8.6-10.3); eGFR CKD-EPI 33.9 (>60)
[2022-01-03] MEDS: fentaNYL Patch Check Q Shift NOTE FOLLOW UP SCH ×2 (07:03→19:07)
[2022-01-03] MEDS: Morphine 2 MG/ML SYRINGE IV PRN ×4 (09:58→20:54)
[2022-01-03] MEDS: Senna TAB 8.6 mg TAB PO SCH ×2 (09:59→20:54)
[2022-01-03 14:47] VITALS: BP 112/74
[2022-01-04] MEDS: Morphine 2 MG/ML SYRINGE IV PRN ×3 (02:14→07:52)
[2022-01-04] MEDS: fentaNYL Patch Check Q Shift NOTE FOLLOW UP SCH (07:38)
== END 2022-01-04 08:25 | disposition hospice, inpatient (51) | DRG 292 ==
LOC: CHOA 13:05 → MEDTELE 16:14
PROVIDERS: ADMIT Internal Medicine Medical Oncology; ATTEND Internal Medicine Hematology & Oncology